=== PATIENT | female | born 2000 | race African-American/Black ===

== ENCOUNTER 2023-12-04 07:32 | Emergency (ER) | payer MEDICAID ==
[~2023-12-04] VITALS: Ht 172.7 cm; Wt 73.0 kg
[2023-12-04 07:38] VITALS: O2SAT 100
[2023-12-04] MEDS: TETRACAINE 0.5% OPHTH DROPS 4ML BOTHEYE ONE (08:26)
[2023-12-04] MEDS: FLUORESCEIN SODIUM 1MG/STRIP BOTHEYE ONE (08:26)
[2023-12-04] MEDS ORDERED: TRIMO LEFTEYE (08:38)
[2023-12-04 08:43] VITALS: BP 124/70; PULSE 58; RESP 16; TEMP 36.83628; O2SAT 100
== END 2023-12-04 09:16 | disposition home or self-care (01) ==
LOC: ER 07:32
DX: S00.212A Abrasion of left eyelid and periocular area, initial encounter (principal); X58.XXXA Exposure to other specified factors, initial encounter; Y93.89 Activity, other specified; Y92.89 Other specified places as the place of occurrence of the external cause; Y99.8 Other external cause status
CPT/HCPCS: 99283